=== PATIENT | female | born 1945 | race Caucasian/White ===

== ENCOUNTER → 2016-04-25 | Day surgery (SDC) | payer MEDICARE, OTHER ==
[~2016-04-25] MED LIST: BUPIVACAINE/EPINEPHRINE 0.5% PF 30 ML VIAL ONE; ISOSULFAN BLUE 50 MG/5 ML VIAL SQ ONE; LACTATED RINGER'S 1000 ML INJ 1,000 ML ONE; LIDOCAINE 1%/EPINEPHrine 1:100,000 SOLN 50 ML VIAL ONE; MIDAZOLAM HCL 2 MG/2 ML VIAL ONE; ONDANSETRON HCL 4 MG/2 ML VIAL IV PUSH ONE; PROPOFOL 100 MG/10 ML INJ IV ONE; ceFAZolin INJ 1,000 MG VIAL ONE
--- NOTE | 2016-04-25 16:00 | TN ---
cc: NAHUN ALTAMIRANO M.D., BRAD A. MD DEVERAS,BRANDI Mckeon M.D. DATE OF SURGERY 04/25/2016 PREOPERATIVE DIAGNOSIS Right-sided breast cancer in need of breast conservation. POSTOPERATIVE DIAGNOSIS Right-sided breast cancer in need of breast conservation. PROCEDURE 1. Needle-localized excisional quadrantectomy upper outer quadrant right breast. 2. Injection of Lymphazurin blue dye for a sentinel node mapping and identification. 3. Localization of two sentinel nodes with removal of two sentinel nodes with ex vivo count #1 [id number], the second one 642. ANESTHESIA General. SURGEON Dr. Altamirano. INDICATION This is a pleasant 71-year-old female who was found to have a right-sided breast cancer. She had an original cancer about 8 years ago and declined radiation therapy at that time. She subsequently had her second tumor, this was an invasive tumor. 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 Plans were made for above. PROCEDURE The patient was taken to the operating room and placed in the supine position. After endotracheal anesthesia her right breast and axillary region were prepped with Betadine. She had previously been down to radiology suite where a guidewire was placed in the upper outer quadrant of right breast. We do a timeout. 6 cc of Lymphazurin blue dye is injected around the guidewire. We can see a hot spot in the axillary region with the navigator probe. After prepping and draping we make a curvilinear incision in the axillary region identifying two sentinel lymph nodes, one deep that has an ex vivo count of 4607, it was not blue. The second one a little bit more superficial of 642 and it was not blue. No other lymphadenopathy is noted. No other hot counts were noted. We then irrigate. Hemostasis was assured with electrocautery device. We close the deep layer with 3-0 Vicryl and skin with 4-0 Vicryl. We then direct our attention to the breast where the guidewire was placed in the upper outer quadrant coursing somewhat in a superior and inferior direction slightly lateral to medial. We make a curvilinear incision and completely excise the guidewire with a little bit more than 2 cm margins circumferentially, all the way down to the pectoralis muscle. We faiza it superiorly with short stitch and a long stitch placed laterally. This is sent down to the specimen mammogram where Dr. Alex states the area in question has been removed. We then irrigate copiously. Hemostasis assured. We closed the deep layer with 3-0 Vicryl and the skin with 4-0 Vicryl. Steri-Strips applied. Sterile bandage applied. The patient tolerated the procedure well and had no immediate postop complications. Nahun Altamirano MD JDB/KK /1:17 PM /3:41 PM
== END | disposition home or self-care (01) ==
LOC: ESDC 06:25
PROVIDERS: ATTEND Surgery
DX: D05.11 Intraductal carcinoma in situ of right breast (principal)
CPT/HCPCS: 00400; 01610; 19125; 38525; 38792; 88307; 88309; J0690; J2250; J2405; J3010; J7120; Q9968